=== PATIENT | female | born 1960 | race Caucasian/White ===

== ENCOUNTER 2024-12-22 18:03 | Emergency (ER) | payer OTHER, SELFPAY ==
[2024-12-22 18:06] VITALS: BP 108/79
[2024-12-22 19:44] VITALS: BP 110/39; BMI 24.5
[2024-12-22 20:00] VITALS: BP 108/70
--- NOTE | 2024-12-22 20:09 | ED.GENMED ---
History of Present Illness
General
Chief Complaint: Eye Problems
Time Seen by Provider: 12/22/24 19:58
History of Present Illness
History of Present Illness:
REVIEW OF OLD RECORDS
The patient denies any significant past medical history, she did have a in the past, she was diagnosed with cellulitis of the left hand in 2022.
Note:
CHIEF COMPLAINT(S)
Facial drooping and numbness around the eye.
HISTORY OF PRESENT ILLNESS
The patient is a 64-year-old female who presented with concerns of facial drooping and numbness around the eye. She noticed significant drooping on the left side of her face, especially around the eye, yesterday while at her mothers house. Family
members confirmed the drooping was quite pronounced. She describes the sensation as 'numbness' around the eye, which led her primary care physician to advise her to visit the emergency department.
Upon examination, she reports feeling something in her eye, associated with wearing contact lenses. She has since removed the contact lenses. She briefly experienced a headache and took one and a half Excedrin, which she mentioned sometimes makes
her feel 'off.' Additionally, she recently applied Ivermectin cream prescribed for skin cancer, noting redness around her eyes.
She has a history of migraines, commonly triggered by artificial ingredients in food and exposure to electromagnetic soares (EMF). The patient is sensitive to such exposures, especially in environments with significant wireless connectivity.
PHYSICAL EXAM
- Eye: No obvious drooping noted at present. Both eyes are moving symmetrically. No significant pain on palpation.
- Neurological: No facial asymmetry observed during examination. Excellent strength in arms and legs, no sensory deficit, no coordination deficits
- Nursing notes reviewed and vital signs reviewed.
- General: Well appearing in no distress
- Neurologic: Excellent strength all extremities, no coordination deficits
- Psychiatric: Appropriate mental status, reasonable insight and judgment however she does seem to perseverate over EMF and tells me she has a Wi-Fi free health
- Extremities: Nontender, no edema, moves all extremities equally
- Skin: No rash, no lesions, there is no evidence of periorbital cellulitis
PROBLEM LIST
Acute Problems:
- Recent facial drooping and numbness around the eye
- Recent headache
Chronic Problems:
- History of migraines
PLAN
- The patient was advised to seek follow-up with a neurologist for further evaluation, especially to rule out any concerns related to transient ischemic attacks or minor strokes.
- Provided the contact information for a local neurologist, Cassandra Fishman, to facilitate follow-up care.
- Advised discontinuing the use of the Ivermectin cream to see if it alleviates the redness and symptoms around the eyes.
- Given discharge paperwork with detailed follow-up instructions.
DIFFERENTIAL DIAGNOSIS
The Differential Diagnosis includes, in no particular order and is not limited to:
1. Transient Ischemic Attack
2. Fort Myer Palsy
3. Contact lens-related irritation
4. Migraine with atypical aura
5. Allergic reaction to Ivermectin cream
6. Stroke
7. Neuropathy
8. Herpes Zoster Ophthalmicus
9. Temporal Arteritis
10. Conjunctivitis
I offered and considered CT imaging however the patient declined. She has an NIHSS equals 0.
Phy Exam
Physical Exam
Physical Exam:
See HPI
Course
Vital Signs
Initial and Last Documented VS:
Initial Vital Signs
Temp Pulse Resp BP Pulse Ox
36.5 C 74 18 108/79 97
12/22/24 18:06 12/22/24 18:06 12/22/24 18:06 12/22/24 18:06 12/22/24 18:06
Last Documented Vital Signs
Temp Pulse Resp BP Pulse Ox
36.5 C 74 18 110/39 97
12/22/24 18:06 12/22/24 18:06 12/22/24 18:06 12/22/24 19:44 12/22/24 19:45
*Pulse Oximetry
Patient hypoxic: no (97% on room air)
*Critical Care Note
Total Time (30-74mins, 75-104mins- exclusive of procedures): Not Applicable
ED Attending Note
-
Portions of this chart may have been created with voice recognition software.� Occasional wrong word or��sound alike� substitutions may have occurred due to the inherent limitations of voice recognition software.
Discharge Plan
Departure
Referrals:
Luma Bellamy MD [Family Provider, Internal Medicine]
Interventions
Interventions:
*Risk Screen - Suicide Last Done: 12/22/24 18:10
*General Assessment Last Done: 12/22/24 19:44
*Neglect/Abuse Screening Last Done: 12/22/24 18:10
*ED- Fall Risk Assessment Last Done: 12/22/24 19:44
*ED COVID-19 Vaccine History Last Done: 12/22/24 19:44
Discharge Date and Time
Print Language: FIJIAN
[2024-12-22 21:00] VITALS: BP 120/70
== END 2024-12-22 21:45 | disposition home or self-care (01) ==
LOC: EMR 18:03
PROVIDERS: EMERGENCY PHYSICIAN Emergency Medicine; FAMILY PHYSICIAN Internal Medicine
DX: R60.0 Localized edema (principal); R29.810 Facial weakness; R20.0 Anesthesia of skin; R51.9 Headache, unspecified
CPT/HCPCS: 99282